=== PATIENT | female | born 1990 | race Asian ===

== ENCOUNTER 2017-01-08 21:27 | Emergency (ER) | payer OTHER ==
[2017-01-08 21:42] VITALS: TEMP 97.9
--- NOTE | 2017-01-08 22:05 | EDPHY ---
H & P Stated Complaint: near syncopal Source: Patient, Family Exam Limitations: No limitations - Personal History LMP (Females 10-55): 8-14 Days Ago Current Tetanus/Diphtheria Vaccine: Yes Current Tetanus Diphtheria and Acellular Pertussis (TDAP): Yes - Medical/Surgical History Hx Asthma: No Hx Chronic Respiratory Disease: No Hx Diabetes: No Hx Cardiac Disease: No Hx Renal Disease: No Hx Cirrhosis: No Hx Alcoholism: No Hx HIV/AIDS: No Hx Splenectomy or Spleen Trauma: No Other PMH: denies - Social History Smoking Status: Never smoked HPI/ROS: CHIEF COMPLAINT: Near syncope HISTORY OF PRESENT ILLNESS: patient had a Kendy dinner this evening, and then after standing up had a near syncopal episode. She feels that this was related to the Kendy as she has had a similar incidents in the past, and given her heritage she feels she may be a lactate dehydrogenase a patient. She says that she started to black out but did not. She had no chest pain with this. She had no dizziness prior to this. She feels significantly better after resting and receiving some IV fluids EN route. The patient is a cardiac nurse and feels that she is resolved prior to arrival but her friends at bedside insisted that she come. She is spontaneously improved without intervention. She has no chest pain at this time, no headache, no dizziness. No chance of as her period was less than 2 weeks ago. This is the same as a previous incidents of this as well. No other associated complaints or modifying factors. REVIEW OF SYSTEMS: Ten systems reviewed and are negative unless otherwise noted in the HPI EXAMINATION General Appearance: Alert, no distress Head: normocephalic, atraumatic Eyes: Pupils equal and round, no conjunctival pallor or injection . EOMs intact. No nystagmus ENT, Mouth: Mucous membranes moist. Uvula midline. No lesions or edema. Neck: Normal inspection, supple, non-tender Respiratory: Lungs are clear to auscultation . No wheezing, rhonchi or crackles. Cardiovascular: Regular rate and rhythm . No murmur. Pulses intact distally. Gastrointestinal: Abdomen is soft and nontender Back: non-tender, no bony abnormalities Neurological: A&O, nonfocal, normal gait . Strength is symmetric in all limbs a 5/5. No pronator drift. No dysmetria. Skin: Warm and dry, no rash Extremities: Nontender, no pedal edema Psychiatric: Mood and affect normal DIFFERENTIAL DIAGNOSES: Including but not limited to Near syncope, syncope, lactate dehydrogenase deficiency, dehydration, vasovagal MDM: 10:00 p.m. patient describes a near syncopal episode consistent with previous. She feels that this was related to alcohol intake as she is afraid that she actually has the enzyme deficiency. This happened after having a Kendy and standing up. She did not have a syncopal episode but it was near syncopal. No chest pain with this. No dizziness. No headache. No nausea or vomiting. She is feeling significantly better if not resolved at this time. She says it is exactly the same as happened the previous. We will obtain EKG and ambulate her to monitor. 10:45 p.m. EKG shows normal sinus rhythm. Vital signs were well within normal limits. She is feeling 100% better. She has been ambulated without assistance and without complication. She is wanting to be discharged home and we will do so. EKG interpreted by Dr. Rivera rate is 69 beats per minute, sinus rhythm. LA interval 136. QTC interval 408. Normal axis. No ST depression or elevations. T-wave inversion only in AVR and V1. Interpretation: Normal sinus rhythm SUPERVISION: Patient was evaluated in conjunction with the supervising physician. Please see their note for details. (Michael Vallejo) Constitutional: Initial Vital Signs Temperature (C) 36.6 C 01/08/17 21:41 Heart Rate 75 01/08/17 21:41 Respiratory Rate 16 01/08/17 21:41 Blood Pressure 111/78 01/08/17 21:41 O2 Sat (%) 98 01/08/17 21:41 O2 Delivery Mode Room Air Allergies/Adverse Reactions: No Known Allergies Allergy (Unverified 01/08/17 21:40) Home Medications: Medication Instructions Recorded NK [No Known Home Meds] 01/08/17 Medical Decision Making ED Course/Re-evaluation: PHYSICIAN DOCUMENTATION: The patient was evaluated and managed by the [facility] Front Office Manager. I saw the patient myself and she comes in with presyncope in the setting of alcohol use. She now has no symptoms whatsoever. My co-signature indicates that I have reviewed this chart and I agree with the findings and plan of care as documented. I am the secondary supervising physician. EKG: Complete interpretation has been separately recorded in the [facility] archive. Summary impression: Normal sinus rhythm (Elizabeth Rivera) Departure - Departure Disposition: Home, Routine, Self-Care Clinical Impression: Near syncope Condition: Good Instructions: Near Syncope (ED) Additional Instructions: Avoid alcohol intake. Follow up with primary care physician. Return to ER for syncope or chest pain Referrals: Patient,NotPresent [Unknown] - As per Instructions Melia Dsouza MD [Medical Doctor] - As per Instructions Stand Alone Forms: Work Excuse
[2017-01-08 23:02] VITALS: BP 115/68; PULSE 70; RESP 17; O2SAT 96
--- NOTE | 2017-01-09 09:24 | CPEKG ---
Heart Rate: 69 RR Interval: 870 P-R Interval: 136 QRSD Interval: 72 QT Interval: 408 QTC Interval: 437 P [place]: 35 QRS [place]: 79 T Wave [place]: 26 EKG Severity - NORMAL ECG - EKG Impression: SINUS RHYTHM Electronically Signed By: Elizabeth Rivera 10-Jan-2017 07:38:26
== END 2017-01-08 23:02 | disposition home or self-care (01) ==
DX: R55 Syncope and collapse (principal)